=== PATIENT | male | born 2000 | race Caucasian/White ===

== ENCOUNTER 2021-01-09 17:08 | Emergency (ER) | payer BC, OTHER ==
[2021-01-09 17:23] VITALS: BP 119/75; RESP 18; TEMP 103.1
[2021-01-09] MEDS ORDERED: DEXAMETHASONE SOD PHOSPHATE 10 MG/ML 1 ML VIAL IM STA (19:53)
[2021-01-09] MEDS ORDERED: ACETAMINOPHEN TAB 325 MG TAB PO STA (19:53)
[2021-01-09] MEDS ORDERED: IBUPROFEN 600 MG TAB PO STA (19:53)
[2021-01-09] MEDS ORDERED: ONDANSETRON 4 MG ODT STARTER PACK 2 TAB BTL PO STA (19:53)
--- NOTE | 2021-01-09 20:06 | ED ---
General Adult HPI - General Chief complaint: Shortness of Breath Stated complaint: Chest pain, cough Time Seen by Provider: 01/09/21 19:46 Source: patient Mode of arrival: ambulatory Limitations: no limitations - History of Present Illness Initial comments: 20 year-old male patient presents to the emergency department for evaluation of upper respiratory symptoms and fever. Patient states symptoms started two days ago. States he has had sore throat, nasal congestion, and cough. State he is coughing up sputum. Does feel somewhat short of breath. Does feel nauseated but has not vomited. Denies taking anything for his symptoms. Denies any history of medical problems. Denies use of medications. Denies any known sick contacts. Patient denies any recent rash, abdominal pain, back pain, numbness, tingling, dizziness, hematuria, dysuria, urinary urgency, urinary frequency, headache, visual changes, or any other complaints. - Related Data Previous Rx's Medication Instructions Recorded Albuterol Nebulized [Ventolin 2.5 mg INHALATION Q6H #30 nebu 01/09/21 Nebulized] Ondansetron [Zofran ODT] 4 mg PO Q8HR PRN #10 tab 01/09/21 guaiFENesin-DM 600/30MG [Mucinex 2 each PO Q12HR PRN #20 tab.er.12h 01/09/21 Dm] Allergies Allergy/AdvReac Type Severity Reaction Status Date / Time No Known Allergies Allergy Verified 01/09/21 20:50 Review of Systems ROS Statement: Those systems with pertinent positive or pertinent negative responses have been documented in the HPI. ROS Other: All systems not noted in ROS Statement are negative. Past Medical History Past Medical History: Asthma History of Any Multi-Drug Resistant Organisms: None Reported Past Surgical History: No Surgical Hx Reported Past Psychological History: No Psychological Hx Reported Smoking Status: Never smoker Past Alcohol Use History: None Reported Past Drug Use History: None Reported General Exam Limitations: no limitations General appearance: alert, in no apparent distress Eye exam: Present: normal appearance, PERRL, EOMI. Absent: scleral icterus, conjunctival injection, periorbital swelling ENT exam: Present: mucous membranes moist. Absent: normal exam, normal oropharynx Course Vital Signs 01/09/21 01/09/21 17:21 21:12 Temperature 103.1 F H Pulse Rate 118 H 57 L Respiratory 18 Rate Blood Pressure 119/75 O2 Sat by Pulse 93 L 94 L Oximetry Medical Decision Making - Medical Decision Making 20-year-old male patient presents to the emergency department today for a fever, cough, sore throat. Physical examination did reveal pharyngeal erythema and tonsillar hypertrophy. Lungs are clear to auscultation. He did have elevated temperature at 103.1F. Had not take any medications prior to arrival. He was given Tylenol Motrin. Tested for covid, result was positive. Oxygen saturation is between 94-95% even with ambulation. He is given prescription for Mucinex and Pro Air. He was given an IM dose of Decadron due to inability to eat and drink related to throat pain. He is instructed to follow-up with his primary care physician for recheck in 1-2 days. Return parameters were discussed in detail. He verbalizes understanding and agrees with this plan. Case discussed with my attending Dr. Campo. - Lab Data Lab Results 01/09/21 Range/Units 20:17 Coronavirus (PCR) Detected A (Not Detectd) - Radiology Data Radiology results: report reviewed, image reviewed One view x-ray of the chest is obtained. Report reviewed in its entirety. Impression by Dr. López shows infrahilar opacities, concerning for infiltrates. Disposition Clinical Impression: COVID-19 Disposition: HOME SELF-CARE Condition: Good Instructions (If sedation given, give patient instructions): Coronavirus Disease 2019 (COVID-19) Additional Instructions: Take medications as directed. Follow-up through primary care physician for recheck in 1-2 days. Return to the emergency department immediately for any new, worsening, or concerning symptoms. Prescriptions: guaiFENesin-DM 600/30MG [Mucinex Dm] 2 each PO Q12HR PRN #20 tab.er.12h PRN Reason: Cough Albuterol Nebulized [Ventolin Nebulized] 2.5 mg INHALATION Q6H #30 nebu Ondansetron [Zofran ODT] 4 mg PO Q8HR PRN #10 tab PRN Reason: Nausea Is patient prescribed a controlled substance at d/c from ED?: No Referrals: None,Stated [Primary Care Provider] - 1-2 days Time of Disposition: 21:20
--- NOTE | 2021-01-09 20:28 | XR ---
EXAMINATION TYPE: XR chest 1V DATE OF EXAM: 01/09/2021 COMPARISON: NONE HISTORY: Cough and shortness of breath. TECHNIQUE: Single frontal view of the chest is obtained. FINDINGS: There is bilateral infrahilar opacities. No pleural effusion, or pneumothorax seen. The c ardiac silhouette size is within normal limits. The osseous structures are intact. IMPRESSION: Infrahilar opacities, concerning for infiltrates.
[2021-01-09 21:14] VITALS: PULSE 57
== END 2021-01-09 22:10 | disposition home or self-care (01) ==
LOC: EC 17:08
DX: U07.1 COVID-19 (principal); J45.909 Unspecified asthma, uncomplicated
CPT/HCPCS: 87635; 71045; 99285; 96372; J1100; S0119